=== PATIENT | male | born 1950 | race Caucasian/White ===

== ENCOUNTER 2024-02-09 06:15 | Day surgery (SDC) | payer MEDICARE, OTHER ==
[2024-02-09] MEDS ORDERED: Propofol 200 MG/20 ML SDV ONE ×3 (06:56→07:57)
[2024-02-09] MEDS ORDERED: fentaNYL 50 MCG/ML SDV ONE (06:56)
[2024-02-09] MEDS: Lactated Ringers 1,000 ML IV SCH (07:05)
== END 2024-02-09 09:11 | disposition home or self-care (01) ==
LOC: JP.SDS 06:15
PROVIDERS: ATTEND Surgery
DX: Z12.11 Encounter for screening for malignant neoplasm of colon (principal); R19.5 Other fecal abnormalities; I10 Essential (primary) hypertension
CPT/HCPCS: 45378; J2704; J3010; J7120

== ENCOUNTER 2025-02-28 08:46 | Emergency (ER) | payer OTHER, MEDICARE | END 2025-02-28 10:37 | disposition home or self-care (01) | LOC: JP.ED 08:46 | DX: J40 Bronchitis, not specified as acute or chronic (principal); I10 Essential (primary) hypertension; Z88.0 Allergy status to penicillin; Z79.899 Other long term (current) drug therapy; Z79.82 Long term (current) use of aspirin | CPT/HCPCS: 71046; 87428; 94640; 99285; J7620; A9270-GY ==